=== PATIENT | female | born 1960 | race Two or more races ===

== ENCOUNTER 2024-04-08 08:28 | Emergency (ER) | payer OTHER ==
[2024-04-08 08:55] VITALS: TEMP 97.9; BMI 33.6
[2024-04-08] MEDS ORDERED: ACETAMINOPHEN 325 MG TABLET (FP) ONE (09:12)
[2024-04-08] MEDS ORDERED: LIDOCAINE 5% TOPICAL PATCH ONE ×2 (09:12→15:10)
[2024-04-08] MEDS: ACETAMINOPHEN 500 MG TABLET (FP) PO ONE (09:16)
[2024-04-08] MEDS: LIDOCAINE 5% TOPICAL PATCH TP ONE ×2 (09:16→15:31)
[2024-04-08 10:01] LABS: EOS % 5.6 % (0-4.5); HEMATOCRIT 37.9 % (32.4-45.2); HEMOGLOBIN 12.7 GM/dL (10.7-15.3); LYMPH % 20.1 % (8-40); MCH 27.8 pg (25.7-33.7); MCHC 33.6 g/dl (32.0-36.0); MEAN CELL VOLUME 82.7 fl (80-96); MEAN PLT VOLUME 8.2 fl (7.5-11.1); MONO % 6.4 % (3.8-10.2); NEUT % 66.9 % (42.8-82.8); PLATELET COUNT 250 10^3/uL (134-434); RBC 4.59 M/mm3 (3.60-5.2); RDW 14.8 % (11.6-15.6); WHITE BLOOD COUNT 5.3 K/mm3 (4.0-10.0)
[2024-04-08 10:34] LABS: CALCIUM 9.3 mg/dL (8.5-10.1); POTASSIUM 4.3 mmol/L (3.5-5.1)
[2024-04-08 10:36] LABS: ALBUMIN 3.7 g/dl (3.4-5.0); BLOOD UREA NITROGEN 12.5 mg/dL (7-18)
[2024-04-08 10:44] LABS: BILIRUBIN,TOTAL 0.6 mg/dL (0.2-1); CREATININE 0.8 mg/dL (0.55-1.3); TOT PROT 7.6 g/dl (6.4-8.2)
[2024-04-08 11:38] LABS: HIV INTERPRETATION NEGATIVE (NEGATIVE)
[2024-04-08 12:33] VITALS: BP 159/87; PULSE 95; RESP 20
[2024-04-08] MEDS ORDERED: LIDOCAINE PATCH REMOVAL MC ONE (22:00)
[2024-04-08] MEDS ORDERED: LIDOCAINE PATCH REMOVAL MC SCH (22:00)
== END 2024-04-08 15:38 | disposition home or self-care (01) ==
LOC: JER 08:28
DX: M25.512 Pain in left shoulder (principal); M54.50 Low back pain, unspecified; W01.0XXA Fall on same level from slipping, tripping and stumbling without subsequent striking against object, initial encounter
CPT/HCPCS: 36415; 71275-TC; 74174-TC; 80053; 82962; 85025; 86803; 87389; 93005; 93010; 99285-25; Q9967